=== PATIENT | male | born 1985 | race Caucasian/White ===

== ENCOUNTER 2016-12-19 18:13 | Emergency (ER) | payer SELFPAY ==
[2016-12-19 18:21] VITALS: BP 146/103; PULSE 77; TEMP 97.3; BMI 28.1
--- NOTE | 2016-12-19 18:42 | PDOC ---
History of Present Illness - General History Source: Patient Exam Limitations: No Limitations - History of Present Illness Initial Comments: 12/19/16 18:50 The patient is a 31 year old male, with no significant past medical history, who presents today complaining of burn on the right wrist. 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 He was maneuvering a hot pot of robertson around the kitchen this evening, when the fat and liquid in the pot accidentally spilled onto his right wrist. He immediately submersed his hand in cold water. The patient states that his tetanus is up to date. Denies fever, chills, nausea, vomiting. Allergies: none reported Social Hx: Quit smoking 2 weeks ago. <Giuliana Bay - Last Filed: 12/19/16 18:50> <Reginald Reed - Last Filed: 12/19/16 19:12> - General Chief Complaint: Burn Stated Complaint: BURN Time Seen by Provider: 12/19/16 18:18 Past History <Giuliana Bay - Last Filed: 12/19/16 18:50> - Past Medical History Other medical history: DENIES - Psycho/Social/Smoking Cessation Hx Anxiety: No Suicidal Ideation: No Smoking History: Former smoker Have you smoked in the past 12 months: Yes Information on smoking cessation initiated: Yes 'Breaking Loose' booklet given: 12/19/16 Hx Alcohol Use: Yes Drug/Substance Use Hx: No Substance Use Type: Alcohol <Reginald Reed - Last Filed: 12/19/16 19:12> - Past Medical History Allergies/Adverse Reactions: Allergies Allergy/AdvReac Type Severity Reaction Status Date / Time No Known Allergies Allergy Verified 12/19/16 18:17 Home Medications: Ambulatory Orders Naproxen [Naprosyn -] 500 mg PO BID PRN #10 tablet 12/19/16 Review of Systems - Review of Systems Comments:: 12/19/16 18:50 CONSTITUTIONAL: Absent: Fever, Chills, Diaphoresis, Generalized Weakness, Malaise, Loss of Appetite HEENT: Absent: Rhinorrhea, Nasal Congestion, Throat Pain, Throat Swelling, Difficulty Swallowing, Mouth Swelling, Ear Pain, Eye Pain, Visual Changes CARDIOVASCULAR: Absent: Chest Pain, Syncope, Palpitations, Irregular Heart Rate, Lightheadedness , Peripheral Edema MUSCULOSKELETAL: Absent: Myalgia, Arthralgia, Joint Swelling, Back pain, Neck Pain SKIN: Present: burn on the right wrist. Absent: Rash, Itching, Pallor <Giuliana Bay - Last Filed: 12/19/16 18:50> *Physical Exam - Vital Signs Last Vital Signs Temp Pulse Resp BP Pulse Ox 97.3 F L 77 16 146/103 100 12/19/16 18:17 12/19/16 18:17 12/19/16 18:17 12/19/16 18:17 12/19/16 18:17 - Physical Exam Comments: 12/19/16 18:51 GENERAL: [The patient is awake, alert, and fully oriented, in no acute distress. ] HEAD: [Normal with no signs of trauma.] EYES: [Pupils equal, round and reactive to light, extraocular movements intact, sclera anicteric, conjunctiva clear.] EXTREMITIES: [Normal range of motion, no edema. Sensation intact. Circulation intact.] NEUROLOGICAL: [Normal speech, normal gait.] PSYCH: [Normal mood, normal affect.] SKIN: [+erythema with superficial blisters over the thenar and hypothenar area of the right hand and the distal volar right wrist. ROM normal. Circulation is intact. 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 On examination there is some superficial blistering of the thenar and hyperthenar area as well as over the volar wrist joint. The appearance is more likely a superficial second-degree burn, but this will need to be followed over time to assure it is not a deep tissue injury over a flexor surface. Patient is aware of the need for proper follow- up. His tetanus is up-to-date. His pain improved with cold compresses. Impression: Second-degree burn of the volar right wrist Plan: Pain management, advised regarding dressing changes with bacitracin and cold compresses. Follow-up with Dr. Guerra, plastic surgery. <Reginald Reed - Last Filed: 12/19/16 19:12> *DC/Admit/Observation/Transfer - Attestations Scribe Attestion: 12/19/16 18:51 Documentation prepared by PAL Rachel, acting as medical office technician for Reginald Reed MD. <Giuliana Bay - Last Filed: 12/19/16 18:50> - Discharge Dispostion Admit: No <Reginald Reed - Last Filed: 12/19/16 19:12> Diagnosis at time of Disposition: Burn of wrist, right, second degree - Prescriptions Prescriptions: Naproxen [Naprosyn -] 500 mg PO BID PRN #10 tablet PRN Reason: Pain - Referrals Referrals: Allison Guerra MD [Staff Physician] - 3 days - Patient Instructions Printed Discharge Instructions: How to Take Care of a Burn, DI for [place] Additional Instructions: You were evaluated today for a second degree burn to the right wrist. Take naprosyn 375 mg every 12 hours as needed for pain. Take extra strength tylenol 1000 mg every 6 hours for pain. Follow up with Dr. Guerra in the [place] office next week. Change the dressing daily, ok to shower with soap and water, then apply thin layer of bacitracin and a bandage to the area. Watch for infection. Follow up in the ED for any serious problems. Otherwise follow up with Dr. Guerra. - Post Discharge Activity Work/School Note: Back to Work
[2016-12-19] MEDS ORDERED: OXYCODONE/APAP 5/325MG COMBO TABLET PO ONE (18:50)
[2016-12-19] MEDS ORDERED: NAPROXEN 375 MG TABLET (FP) PO ONE (18:50)
[2016-12-19] MEDS ORDERED: ACETAMINOPHEN 325 MG TABLET (FP) PO ONE (18:51)
== END 2016-12-19 19:10 | disposition home or self-care (01) ==
LOC: FER 18:13
DX: T23.271A Burn of second degree of right wrist, initial encounter (principal); X10.2XXA Contact with fats and cooking oils, initial encounter; Y93.G3 Activity, cooking and baking; Y92.511 Restaurant or cafe as the place of occurrence of the external cause; Y99.0 Civilian activity done for income or pay; Z87.891 Personal history of nicotine dependence
CPT/HCPCS: 99282-25

== ENCOUNTER 2017-02-08 22:56 | Emergency (ER) | payer SELFPAY ==
[2017-02-08] MEDS ORDERED: GLUCAGON 1 MG KIT IVPUSH ONE (23:03)
--- NOTE | 2017-02-08 23:04 | PDOC ---
History of Present Illness - General Chief Complaint: Foreign Body (FB) Stated Complaint: IM CHOKING Time Seen by Provider: 02/08/17 23:03 History Source: Patient - History of Present Illness Initial Comments: 02/09/17 05:34 food imapction--piece of pork got stuck this happened once before--1.5 yrs ago--requiring endoscopy not given diagnosis (no fu) unable to tolerate PO Timing/Duration: 4-6 hours Severity: moderate Modifying Factors: improves with: eating Associated Symptoms: reports: chest pain, loss of appetite. denies: fever/ chills Past History - Past Medical History Allergies/Adverse Reactions: Allergies Allergy/AdvReac Type Severity Reaction Status Date / Time No Known Allergies Allergy Verified 02/08/17 22:57 Home Medications: Ambulatory Orders Omeprazole 40 mg PO DAILY #60 capsule. 02/09/17 Comment:: 02/09/17 05:35 esophageal impaction - Family Disease History Comment:: 02/09/17 05:35 non contributory - Psycho/Social/Smoking Cessation Hx Anxiety: No Suicidal Ideation: No Smoking History: Former smoker Have you smoked in the past 12 months: Yes 'Breaking Loose' booklet given: 12/19/16 Hx Alcohol Use: Yes Drug/Substance Use Hx: No Substance Use Type: Alcohol Review of Systems - Review of Systems All Other Systems: Reviewed and Negative *Physical Exam - Physical Exam General Appearance: Yes: Nourished, Appropriately Dressed HEENT: positive: Normal Voice Neck: negative: Tender Respiratory/Chest: positive: Lungs Clear Cardiovascular: positive: Regular Rhythm Gastrointestinal/Abdominal: negative: Tender Lymphatic: negative: Adenopathy Musculoskeletal: positive: Normal Inspection Extremity: positive: Normal Capillary Refill Integumentary: positive: Normal Color ED Treatment Course - LABORATORY CBC & Chemistry Diagram: 02/08/17 23:25 02/08/17 23:25 Medical Decision Making - Medical Decision Making 02/09/17 05:36 esophageal food impaction no response to glucagon appreciate GI intervention *DC/Admit/Observation/Transfer Diagnosis at time of Disposition: Food impaction of esophagus Qualifiers: Encounter type: initial encounter Qualified Code(s): T18.128A - Food in esophagus causing other injury, initial encounter - Discharge Dispostion Disposition: HOME Condition at time of disposition: Stable - Prescriptions Prescriptions: Omeprazole 40 mg PO DAILY #60 capsule. - Referrals Referrals: Shailesh Hanna MD [Staff Physician] - 7 days - Patient Instructions Printed Discharge Instructions: Esophageal Stricture
[2017-02-08 23:28] VITALS: BMI 27.3
[2017-02-08 23:54] LABS: BASOPHIL 0.1 % (0-2.0); EOSINOPHIL 0.7 % (0-4.5); MCH 26.4 pg (25.7-33.7); MCHC 33.4 g/dl (32.0-35.9); MEAN CELL VOLUME 79.2 fl (80-96); MEAN PLT VOLUME 8.9 fl (7.5-11.1); NEUTROPHILS 74.3 % (42.8-82.8); PLATELET COUNT 229 K/MM3 (134-434); WHITE BLOOD COUNT 10.8 K/mm3 (4.0-10.0)
[2017-02-09 00:06] LABS: INR 1.14 (0.82-1.09); PROTHROMBIN TIME (PATIENT) 12.6 SEC (9.98-11.88)
[2017-02-09 00:09] LABS: ACTIVATED PTT 31.7 SECONDS (26.9-34.4)
[2017-02-09 00:14] LABS: ALBUMIN 4.5 g/dl (3.4-5.0); ALK PHOS 63 U/L (45-117); ANION GAP 13 (8-16); BILIRUBIN,TOTAL 1.2 mg/dL (0.2-1.0); CO2 22 mmol/L (21-32); GLUCOSE,RANDOM 134 mg/dL (74-106); SGOT/AST 20 U/L (15-37); SGPT/ALT 25 U/L (12-78); TOT PROT 7.9 g/dl (6.4-8.2)
[2017-02-09] MEDS ORDERED: SUCCINYLCHOLINE CHLORIDE 200 MG/10 ML VIAL ONE (00:23)
[2017-02-09] MEDS ORDERED: LIDOCAINE HCL 2% 100 MG/5 ML DISP.SYRIN ONE (00:23)
[2017-02-09] MEDS ORDERED: PROPOFOL 20 ML ONE ×2 (00:24→00:31)
[2017-02-09] MEDS ORDERED: PROMETHAZINE HCL 25 MG/1 ML VIAL IVPUSH PRN (00:56)
[2017-02-09] MEDS ORDERED: ONDANSETRON 4 MG/2 ML VIAL IVPUSH PRN (00:56)
[2017-02-09] MEDS ORDERED: LACTATED RINGERS SOLUTION 1,000 ML IV SCH (01:00)
[2017-02-09 01:25] VITALS: TEMP 97.2
[2017-02-09 01:55] VITALS: BP 132/78; PULSE 74
--- NOTE | 2017-02-09 11:36 | OP ---
DATE OF OPERATION: 02/09/2017 PROCEDURE: Upper endoscopy with removal of an esophageal foreign body. ANESTHESIOLOGIST: Patient sedated by Dr. Checo Lawler of anesthesia. DESCRIPTION OF PROCEDURE: The Pentax upper endoscope was passed down the esophagus. There was a meat/food impaction in the distal esophagus. There was no obvious mass in this area, and the scope was used to gently push the food impaction through the GE junction to the stomach where it went with minimal resistance. The stomach was insufflated with air and appeared grossly normal. The scope was advanced into the proximal small bowel. The second portion of the duodenum and duodenal bulb regions. The recto flexure of the fundus and GE junction revealed no gross abnormality. Scope was withdrawn back to the esophagus. There appeared to be some mild erythema and a small amount of blood at the area where the food had been impacted, but no underlying lesion or obvious mass. The scope was then withdrawn. IMPRESSION: Food impaction of the distal esophagus, likely above a stricture of the GE junction. Food impaction able to be pushed into the stomach with minimal resistance. CLARA BUSH M.D. [id number]
== END 2017-02-09 01:33 | disposition home or self-care (01) ==
LOC: FER 22:56
PROC: 3E033GC Introduction of Other Therapeutic Substance into Peripheral Vein, Percutaneous Approach (ICD-10-PCS; principal; 2017-02-08)
DX: T18.128A Food in esophagus causing other injury, initial encounter (principal); Z87.891 Personal history of nicotine dependence; X58.XXXA Exposure to other specified factors, initial encounter; Y93.89 Activity, other specified; Y92.9 Unspecified place or not applicable
CPT/HCPCS: 36415; 80053; 85025; 85610; 85730; 86850; 86900; 86901; 94760; 99283-25